=== PATIENT | female | born 1965 | race Hispanic/Latino ===

== ENCOUNTER 2019-07-19 12:32 | Outpatient (CLI) | payer OTHER ==
--- NOTE | 2019-07-19 14:18 | XRay Report ---
LUMBAR SPINE 3 VIEWS INDICATION: BACK PAIN COMPARISON: None. FINDINGS: There is no fracture, subluxation, or other acute radiographic abnormality of the lumbar spine. There is discogenic degenerative change throughout the lumbar spine. This is most severe at L3-4 L4-5 and L5-S1. Atherosclerotic calcifications are noted in the aorta and iliac arteries. Signer Name: Colby Law MD Signed: 07/19/2019 2:14 PM Workstation Name: [id number]
--- NOTE | 2019-07-19 14:19 | XRay Report ---
RIGHT HAND 2 VIEWS INDICATION / CLINICAL INFORMATION: RIGHT HAND PAIN COMPARISON: None available. FINDINGS: BONES / JOINT(S): No acute fracture or subluxation. No significant arthritis. SOFT TISSUES: No significant abnormality. ADDITIONAL FINDINGS: None. Signer Name: Colby Law MD Signed: 07/19/2019 2:15 PM Workstation Name: [id number]
--- NOTE | 2019-07-19 14:23 | XRay Report ---
RIGHT HIP INDICATION: Hip pain. COMPARISON: None. FINDINGS: Frontal and frog-leg lateral views of the hip labeled right were obtained. There is no evid ence of fracture or dislocation. There is slightly aspherical shape of the femoral head with suspecte d bony protrusion along the lateral aspect of the femoral head/neck junction. The appearance is sugge stive of femoroacetabular impingement, suspected cam type. The appearance is asymmetric compared to t he left hipthere is mild degenerative change in the right hip with mild joint space narrowing. [place] visualized moderate to severe degenerative changes within the lower lumbar spine. IMPRESSION: Right hip without evidence of acute osseous injury. 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 Although, this may be ex aggerated by patient's positioning. Recommend clinical correlation. Signer Name: Nav Koch MD Signed: 07/19/2019 2:19 PM Workstation Name: [id number]
== END 2019-07-19 12:33 | disposition home or self-care (01) ==
LOC: XRAY 12:32
PROVIDERS: ATTEND Internal Medicine
DX: M47.817 Spondylosis without myelopathy or radiculopathy, lumbosacral region (principal); I70.0 Atherosclerosis of aorta; M16.11 Unilateral primary osteoarthritis, right hip; M79.641 Pain in right hand
CPT/HCPCS: 72100